=== PATIENT | male | born 1975 | race Two or more races ===

== ENCOUNTER 2016-09-29 12:56 | Emergency (ER) | payer OTHER ==
[~2016-09-29] VITALS: Ht 167.6 cm; Wt 76.5 kg
[~2016-09-29 12:56] MED LIST: BACTRIM,SEPT1 TABLET PO; FLONASE16 G1 BOTH NARES; ILOTYCIN1 GM LEFT EYE; INDOCIN25 MG PO; MOTRIN600 MG PO; PERCOCET 5/31 TABLET PO; VALIUM5 MG PO; ZOFRAN ODT4 MG PO
[2016-09-29] MEDS ORDERED: OXYCODONE HCL10 MG PO (13:52)
[2016-09-29 14:19] LABS: INFLUENZA A VIRAL ANTIGEN NEGATIVE; INFLUENZA B VIRAL ANTIGEN NEGATIVE
[2016-09-29] MEDS ORDERED: AMOXICILLIN500 M1 PO (14:23)
[2016-09-29 14:30] VITALS: BP 114/66
== END 2016-09-29 14:32 | disposition home or self-care (01) ==
LOC: EME 12:56
PROVIDERS: Nurse Practitioner Family
DX: J02.0 Streptococcal pharyngitis (principal); F17.200 Nicotine dependence, unspecified, uncomplicated
CPT/HCPCS: 87502; 87651 90; 99281; 99284